=== PATIENT | male | born 1985 | race American Indian/Alaskan Native ===

== ENCOUNTER 2020-08-26 09:39 | Emergency (ER) | payer SELFPAY ==
[2020-08-26] MEDS ORDERED: levETIRAcetam 1000 MG/NS 0.75% 1,000 MG/100 ML BAG IV ONE (10:58)
--- NOTE | 2020-08-26 11:16 | Emergency Department Report ---
ED Seizure HPI - General Chief Complaint: Seizure Stated Complaint: SEIZURE Time Seen by Provider: 08/26/20 10:26 Source: patient, EMS Mode of arrival: Stretcher Limitations: Altered Mental Status - History of Present Illness Initial Comments: Chief complaint: "I had a seizure." HPI: This is a 34-year-old male with history of seizure disorder on Keppra who presents to the emergency department after seizure activity. He has not taken his Keppra in over a days time. It was reported that patient has had 4 seizures today. Patient is now alert. He is able to give a full history. Patient denies other significant past medical history. No recent surgeries. Only medication: Keppra. Complaint: seizure -: This morning Witnessed:: Yes Trauma: No Seizure History: known seizure disorder Place: home Possible Precipitating Event: other (Lack of medication) Associated Symptoms: denies other symptoms Treatments Prior to Arrival: none - Related Data Home Medications Medication Instructions Recorded Confirmed Last Taken levETIRAcetam [Keppra TAB] 750 mg PO BID 08/26/20 08/26/20 Unknown Previous Rx's Medication Instructions Recorded Last Taken Type levETIRAcetam [Keppra TAB] 750 mg PO BID 30 Days #60 tablet 08/26/20 Unknown Rx Allergies Allergy/AdvReac Type Severity Reaction Status Date / Time No Known Allergies Allergy Unverified 08/26/20 09:53 ED Review of Systems ROS: Stated complaint: SEIZURE Other details as noted in HPI Comment: All other systems reviewed and negative Constitutional: denies: fever, malaise Respiratory: denies: cough Cardiovascular: denies: chest pain Gastrointestinal: denies: abdominal pain ED Past Medical Hx - Past Medical History Previous Medical History?: Yes Hx Hypertension: Yes Hx Seizures: Yes (Epilepsy) - Surgical History Past Surgical History?: Yes - Social History Smoking Status: Unknown if ever smoked Substance Use Type: None - Medications Home Medications: Home Medications Medication Instructions Recorded Confirmed Last Taken Type levETIRAcetam [Keppra TAB] 750 mg PO BID 08/26/20 08/26/20 Unknown History levETIRAcetam [Keppra TAB] 750 mg PO BID 30 Days #60 tablet 08/26/20 Unknown Rx ED Physical Exam - General Limitations: No Limitations, Altered Mental Status General appearance: alert, in no apparent distress - Head Head exam: Present: atraumatic, normocephalic - Eye Eye exam: Present: normal appearance - ENT ENT exam: Present: mucous membranes moist - Neck Neck exam: Present: normal inspection, full ROM - Respiratory Respiratory exam: Present: normal lung sounds bilaterally. Absent: respiratory distress, wheezes, rales, rhonchi - Cardiovascular Cardiovascular Exam: Present: regular rate, normal rhythm, normal heart sounds. Absent: systolic murmur, diastolic murmur, rubs, gallop - GI/Abdominal GI/Abdominal exam: Present: soft, normal bowel sounds. Absent: distended, tenderness, guarding, rebound - Rectal Rectal exam: Present: deferred - Extremities Exam Extremities exam: Present: normal inspection - Back Exam Back exam: Present: normal inspection - Neurological Exam Neurological exam: Present: alert, oriented X3 - Psychiatric Psychiatric exam: Present: normal affect, normal mood - Skin Skin exam: Present: warm, dry, intact, normal color. Absent: rash ED Course Vital Signs 08/26/20 08/26/20 08/26/20 09:47 09:49 09:54 Temperature 98.6 F Pulse Rate 75 Respiratory 16 16 Rate Blood Pressure 129/64 148/88 Blood Pressure 129/64 [Right] O2 Sat by Pulse 90 95 95 Oximetry 08/26/20 08/26/20 08/26/20 10:00 10:19 10:31 Temperature Pulse Rate Respiratory 10 L 12 Rate Blood Pressure 129/64 161/80 119/68 Blood Pressure [Right] O2 Sat by Pulse 90 Oximetry 08/26/20 08/26/20 10:45 10:50 Temperature Pulse Rate 75 Respiratory 15 16 Rate Blood Pressure 119/68 Blood Pressure 139/75 [Right] O2 Sat by Pulse Oximetry ED Medical Decision Making - Medical Decision Making Upon my evaluation, patient was alert and oriented x4. He presents after 4 seizure episodes. He received IV Keppra load. Repeat pulse oximetry 99% on room air which is normal. I suspect breakthrough seizure due to medication noncompliance. He was referred to neurologist as needed. Critical care attestation.: If time is entered above; I have spent that time in minutes in the direct care of this critically ill patient, excluding procedure time. ED Disposition Clinical Impression: Breakthrough seizure, Seizure disorder Disposition: -01 TO HOME OR SELFCARE Is pt being admited?: No Does the pt Need Aspirin: No Condition: Stable Instructions: Recurrent Seizures Adult (ED) Prescriptions: levETIRAcetam [Keppra TAB] 750 mg PO BID 30 Days #60 tablet Referrals: DOMINICK LEDBETTER MD [Staff Physician] - 3-5 Days
[2020-08-26 13:45] VITALS: BP 155/97
== END 2020-08-26 14:00 | disposition home or self-care (01) ==
LOC: ED 09:39
DX: G40.909 Epilepsy, unspecified, not intractable, without status epilepticus (principal); I10 Essential (primary) hypertension; Z86.69 Personal history of other diseases of the nervous system and sense organs; Z79.899 Other long term (current) drug therapy
CPT/HCPCS: 96374; 99284; J1953